=== PATIENT | female | born 1990 | race African-American/Black ===

== ENCOUNTER 2016-08-16 23:52 | Emergency (ER) | payer MEDICAID ==
[~2016-08-16] VITALS: Ht 170.2 cm; Wt 112.9 kg
[~2016-08-16 23:52] MED LIST: BACTROBAN 2% OI15 GM TOPIC; CYCLOBENZAPRINE10 MG ORAL; DOXYCYCLINE MO100 M2 PO; MACROBID100 MG ORAL; NKM; NORCO 5-325 TA1 EACH ORAL; PREDNISONE20 MG ORAL; PREDNISONE50 MG PO; RANITIDINE HCL150 MG ORAL; RANITIDINE HCL150 MG PO; ROBAXIN500 MG PO; TAMIFLU75 MG ORAL; TRAMADOL HCL50 MG ORAL; TYLENOL325 MG ORAL
[2016-08-17 00:49] LABS: APPEARANCE,URINE CLEAR; KETONES,URINE NEGATIVE (NEGATIVE); NITRITE,URINE NEGATIVE (NEGATIVE); PH,URINE 6.5 (4.5-8.0); PROTEIN,URINE NEGATIVE (NEGATIVE); UROBILINOGEN,URINE NORMAL MG/DL (0.0-1.0)
--- NOTE | 2016-08-17 00:56 | Emergency Room Report ---
History of Present Illness General Chief Complaint: Female Urogenital Problems Source: Patient Present Illness HPI Patient present with complaints of epigastric cramping Patient was vomiting and she felt that there was evidence of blood, she reports red material and wasn't sure if there was blood Also complains of diarrhea Onset of symptoms as approximately 30 minutes prior to arrival Denies any chest pressures of breath Patient has ultrasound from outside clinic showing approximately 11 week intrauterine Denies any vaginal bleeding or spotting Patient is a Allergies: Coded Allergies: ASPIRIN (Verified Allergy, Severe, Anaphylaxis, 08/17/16) DIPHENHYDRAMINE HCL (Verified Allergy, Severe, Anaphylaxis, 08/17/16) IBUPROFEN (Verified Allergy, Severe, Anaphylaxis, 08/17/16) ACETAMINOPHEN (Unverified Allergy, Unknown, 08/17/16) PAMABROM (Unverified Allergy, Unknown, 10/27/13) PYRILAMINE (Unverified Allergy, Unknown, 10/27/13) Patient History Past Medical History: see triage record Pertinent Family History: none Last Menstrual Period: june 02 Now: Yes - 11 weeks : 3 Para: 0 Reviewed Nursing Documentation: PMH: Agreed, PSxH: Agreed Nursing Documentation-PMH Past Medical History: No Stated History Hx Cardiac Problems: No Hx Cancer: No Hx Gastrointestinal Problems: No Hx Neurological Problems: No Review of Systems All Other Systems: negative except mentioned in HPI Physical Exam Vital Signs Date Time Temp Pulse Resp B/P Pulse Ox O2 Delivery O2 Flow Rate FiO2 08/17/16 00:05 98.4 75 16 144/83 97 Room Air Sp02 EP Interpretation: reviewed, normal General Appearance: well appearing, no apparent distress Head: normocephalic, atraumatic Eyes: bilateral eye EOMI, bilateral eye PERRL ENT: hearing grossly normal, normal pharynx, TMs + canals normal, uvula midline Neck: full range of motion, supple, no meningismus, no bony tend Respiratory: lungs clear, normal breath sounds, no rhonchi, no respiratory distress, no retraction, no accessory muscle use Cardiovascular #1: normal peripheral pulses, regular rate, rhythm, no edema, no gallop, no JVD, no murmur Gastrointestinal: normal bowel sounds, non tender, soft, no mass, no organomegaly, non-distended, no guarding, no hernia, no pulsatile mass, no rebound Genitourinary: no CVA tenderness Musculoskeletal: normal inspection Neurologic: oriented x3, responsive, flexographic press plate setter III-XII nml as tested, motor strength/ tone normal, sensory intact Psychiatric: mood/affect normal Skin: normal color, no rash, warm/dry, palpation normal Lymphatic: normal inspection, no adenopathy Medical Decision Making Diagnostic Impression: Primary Impression: Vomiting Additional Impression: Diarrhea ER Course With the history exam and presentation, multiple differentials considered, including but not limited to appendicitis, gastritis, cholecystitis, diverticulitis Patient has ultrasound revealing intrauterine Given the lack of any vaginal bleeding or spotting further emergency ultrasound was not repeated Patient's blood work is at baseline levels patient remains comfortable to consideration for GI bleed is low and the patient is stable for close outpatient followup Labs Test 08/17/16 00:10 08/17/16 00:45 Urine Color Pale yellow Urine Appearance Clear Urine pH 6.5 (4.5-8.0) Urine Specific [place] 1.020 (1.005-1.035) Urine Protein Negative (NEGATIVE) Urine Glucose (UA) Negative (NEGATIVE) Urine Ketones Negative (NEGATIVE) Urine Occult Blood Negative (NEGATIVE) Urine Nitrite Negative (NEGATIVE) Urine Bilirubin Negative (NEGATIVE) Urine Urobilinogen Normal MG/DL (0.0-1.0) Urine Leukocyte Esterase 1+ (NEGATIVE) Urine RBC 0-2 /HPF (0 - 2) Urine WBC 0-2 /HPF (0 - 2) Urine Squamous Epithelial Cells Moderate /LPF (NONE/OCC) Urine Amorphous Sediment Moderate /LPF (NONE) Urine Bacteria Few /HPF (NONE) Urine Coarse Granular Casts 0-2 /LPF (NONE) Urine HCG, Qualitative Positive White Blood Count 6.3 K/UL (4.8-10.8) Red Blood Count 4.74 M/UL (4.20-5.40) Hemoglobin 11.7 G/DL (12.0-16.0) Hematocrit 37.8 % (37.0-47.0) Mean Corpuscular Volume 80 FL (80-99) Mean Corpuscular Hemoglobin 24.8 PG (27.0-31.0) Mean Corpuscular Hemoglobin Concent 31.1 G/DL (32.0-36.0) Red Cell Distribution Width 15.3 % (11.6-14.8) Platelet Count 323 K/UL (150-450) Mean Platelet Volume 6.5 FL (6.5-10.1) Neutrophils (%) (Auto) 65.6 % (45.0-75.0) Lymphocytes (%) (Auto) 26.2 % (20.0-45.0) Monocytes (%) (Auto) 3.1 % (1.0-10.0) Eosinophils (%) (Auto) 3.7 % (0.0-3.0) Basophils (%) (Auto) 1.4 % (0.0-2.0) Sodium Level 136 mEQ/L (135-145) Potassium Level 3.7 mEQ/L (3.4-4.9) Chloride Level 98 mEQ/L (98-107) Carbon Dioxide Level 21 mEQ/L (20-30) Anion Gap 17 (5-15) Blood Urea Nitrogen 5 mg/dL (7-23) Creatinine 0.6 mg/dL (0.5-0.9) Estimat Glomerular Filtration Rate > 60 mL/min (>60) Glucose Level 91 mg/dL (74-106) Calcium Level 9.6 mg/dL (8.6-10.2) Total Bilirubin < 0.2 mg/dL (0.0-1.2) Aspartate Amino Transf (AST/SGOT) 14 U/L (5-40) Alanine Aminotransferase (ALT/SGPT) 13 U/L (3-33) Alkaline Phosphatase 80 U/L (35-104) Total Protein 7.3 g/dL (6.6-8.7) Albumin 3.7 g/dL (3.5-5.2) Globulin 3.6 g/dL Albumin/Globulin Ratio 1.0 (1.0-2.7) Lipase 17 U/L (< 60) Chest X-Ray Diagnostic Results Chest X-Ray Ordered: No Last Vital Signs Date Time Temp Pulse Resp B/P Pulse Ox O2 Delivery O2 Flow Rate FiO2 08/17/16 00:05 98.4 75 16 144/83 97 Room Air Status: improved Disposition: HOME, SELF-CARE Condition: Improved Scripts Metoclopramide Hcl* (REGLAN*) 5 Mg Tablet 5 MG ORAL EVERY 12 HOURS, #10 TAB Prov: LENA HAN D.O. 08/17/16 Additional Instructions: Patient is provided with the discharge instructions notified to follow up with primary doctor in the next 2-3 days otherwise return to the er with any worsening symptoms. Please note that this report is being documented using DRAGON technology. This can lead to erroneous entry secondary to incorrect interpretation by the dictating instrument. LENA HAN D.O. Aug 17, 2016 00:56
[2016-08-17 01:00] LABS: LEUKOCYTE ESTERASE ,URINE 1+ (NEGATIVE)
[2016-08-17 01:01] LABS: AMORPHOUS SEDIMENT,UR MODERATE /LPF; BACTERIA,URINE FEW /HPF; COARSE GRANULAR CASTS,URINE 0-2 /LPF; RBC,URINE 0-2 /HPF (0 - 2); SQUAMOUS EPITHELIAL CELL,UR MODERATE /LPF (NONE/OCC); WBC,URINE 0-2 /HPF (0 - 2)
[2016-08-17 01:09] LABS: BASOPHILS % (AUTO) 1.4 % (0.0-2.0); EOSINOPHILS % (AUTO) 3.7 % (0.0-3.0); LYMPHOCYTES % (AUTO) 26.2 % (20.0-45.0); MEAN CORPUSCULAR HEMOGLOBIN 24.8 PG (27.0-31.0); MEAN CORPUSCULAR HGB CONC 31.1 G/DL (32.0-36.0); MEAN CORPUSCULAR VOLUME 80 FL (80-99); MEAN PLATELET VOLUME 6.5 FL (6.5-10.1); MONOCYTES % (AUTO) 3.1 % (1.0-10.0); NEUTROPHILS % (AUTO) 65.6 % (45.0-75.0); PLATELET COUNT 323 K/UL (150-450); RED BLOOD COUNT 4.74 M/UL (4.20-5.40); RED CELL DISTRIBUTION WIDTH 15.3 % (11.6-14.8); WHITE BLOOD COUNT 6.3 K/UL (4.8-10.8)
[2016-08-17 01:30] LABS: ALANINE AMINOTRANSFERASE 13 U/L (3-33); ANION GAP 17 (5-15); ASPARTATE AMINO TRANSFERASE 14 U/L (5-40); CALCIUM 9.6 mg/dL (8.6-10.2); CARBON DIOXIDE 21 mEQ/L (20-30); CHLORIDE 98 mEQ/L (98-107); CREATININE 0.6 mg/dL (0.5-0.9); GLOMERULAR FILTRATION RATE > 60 mL/min (>60); HEMOLYSIS 0; LIPASE 17 U/L (< 60); POTASSIUM 3.7 mEQ/L (3.4-4.9); SODIUM 136 mEQ/L (135-145); TOTAL PROTEIN 7.3 g/dL (6.6-8.7)
[2016-08-17 02:35] VITALS: BP 135/81
[2016-08-17] MEDS ORDERED: REGLAN5 MG ORAL (02:37)
[2016-08-17 02:45] VITALS: BP 135/81
== END 2016-08-17 02:45 | disposition home or self-care (01) ==
LOC: EMR 08-17 01:20
DX: R11.10 Vomiting, unspecified (principal); R19.7 Diarrhea, unspecified; O26.91 Pregnancy related conditions, unspecified, first trimester; Z3A.11 11 weeks gestation of pregnancy; Z88.6 Allergy status to analgesic agent; Z88.8 Allergy status to other drugs, medicaments and biological substances
CPT/HCPCS: 36415; 80053; 81003; 81025; 83690; 85025; 99283

== ENCOUNTER 2017-02-26 13:50 | Emergency (ER) | payer MEDICAID ==
[~2017-02-26] VITALS: Ht 170.2 cm; Wt 108.9 kg
[~2017-02-26 13:50] MED LIST changes: +REGLAN5 MG ORAL
[2017-02-26 15:05] LABS: BASOPHILS % (AUTO) 1.4 % (0.0-2.0); LYMPHOCYTES % (AUTO) 22.4 % (20.0-45.0); MEAN CORPUSCULAR HEMOGLOBIN 23.1 PG (27.0-31.0); MEAN CORPUSCULAR HGB CONC 30.4 G/DL (32.0-36.0); MEAN CORPUSCULAR VOLUME 76 FL (80-99); MEAN PLATELET VOLUME 6.1 FL (6.5-10.1); MONOCYTES % (AUTO) 5.1 % (1.0-10.0); NEUTROPHILS % (AUTO) 64.1 % (45.0-75.0); PLATELET COUNT 322 K/UL (150-450); RED BLOOD COUNT 3.55 M/UL (4.20-5.40); RED CELL DISTRIBUTION WIDTH 13.7 % (11.6-14.8); WHITE BLOOD COUNT 5.7 K/UL (4.8-10.8)
[2017-02-26 15:27] LABS: ANION GAP 10 mmol/L (5-15); CALCIUM 7.8 MG/DL (8.5-10.1); CARBON DIOXIDE 23 MMOL/L (21-32); CHLORIDE 108 MMOL/L (98-107); CREATININE 0.7 MG/DL (0.55-1.30); GLOMERULAR FILTRATION RATE > 60 mL/min (>60); POTASSIUM 3.7 MMOL/L (3.5-5.1); SODIUM 141 MMOL/L (136-145)
[2017-02-26 15:31] LABS: INR 0.9 (0.9-1.1); PROTHROMBIN TIME 9.8 SEC (9.30-11.50)
[2017-02-26 15:34] LABS: ALANINE AMINOTRANSFERASE 16 U/L (12-78); ALBUMIN/GLOBULIN RATIO 0.6 (1.0-2.7); ASPARTATE AMINO TRANSFERASE 26 U/L (15-37); TOTAL PROTEIN 6.2 G/DL (6.4-8.2)
[2017-02-26 16:42] LABS: APPEARANCE,URINE VERY CLOUDY; KETONES,URINE NEGATIVE (NEGATIVE); LEUKOCYTE ESTERASE ,URINE 3+ (NEGATIVE); NITRITE,URINE NEGATIVE (NEGATIVE); PH,URINE 6 (4.5-8.0); PROTEIN,URINE 3+ (NEGATIVE); UROBILINOGEN,URINE NORMAL MG/DL (0.0-1.0)
[2017-02-26 16:52] LABS: BACTERIA,URINE FEW /HPF; RBC,URINE TNTC /HPF (0 - 2); SQUAMOUS EPITHELIAL CELL,UR MANY /LPF (NONE/OCC); TRANSITIONAL EPI CELLS,URINE MODERATE /LPF; WBC,URINE 40-60 /HPF (0 - 2)
[2017-02-26] MEDS ORDERED: CEPHALEXIN500 MG ORAL (17:21)
[2017-02-26 17:35] VITALS: BP 156/94
--- NOTE | 2017-02-26 22:52 | Emergency Room Report ---
History of Present Illness General Chief Complaint: Pain Source: Patient Present Illness HPI The patient is a 26-year-old female presenting for left leg swelling. She gave 2 days prior via vaginal delivery. She had epidural done as well. She noticed left lower leg pain approximately one hour prior to arrival. Pain is a 7/10 dull ache and does not radiate. She denies any other symptoms including fever, chills, shortness of breath, cough, rash, numbness or tingling Allergies: Coded Allergies: ASPIRIN (Verified Allergy, Severe, Anaphylaxis, 08/17/16) DIPHENHYDRAMINE HCL (Verified Allergy, Severe, Anaphylaxis, 08/17/16) IBUPROFEN (Verified Allergy, Severe, Anaphylaxis, 08/17/16) ACETAMINOPHEN (Unverified Allergy, Unknown, 08/17/16) PAMABROM (Unverified Allergy, Unknown, 10/27/13) PYRILAMINE (Unverified Allergy, Unknown, 10/27/13) Patient History Past Medical History: see triage record Pertinent Family History: none Now: No Reviewed Nursing Documentation: PMH: Agreed, PSxH: Agreed Nursing Documentation-PMH Past Medical History: No Stated History Hx Cardiac Problems: No Hx Cancer: No Hx Gastrointestinal Problems: No Hx Neurological Problems: No Review of Systems All Other Systems: negative except mentioned in HPI Physical Exam Vital Signs Date Time Temp Pulse Resp B/P (MAP) Pulse Ox O2 Delivery O2 Flow Rate FiO2 02/26/17 14:02 Room Air 02/26/17 17:35 71 16 156/94 98 02/26/17 17:35 98.1 Sp02 EP Interpretation: reviewed, normal General Appearance: no apparent distress, alert, GCS 15, non-toxic Head: normocephalic, atraumatic Eyes: bilateral eye normal inspection, bilateral eye PERRL ENT: hearing grossly normal, normal pharynx, no angioedema, normal voice Respiratory: chest non-tender, lungs clear, normal breath sounds, speaking full sentences Cardiovascular #1: regular rate, rhythm, no edema Musculoskeletal: back normal, gait/station normal, normal range of motion, no calf tenderness, swelling - L lower leg Neurologic: alert, oriented x3, responsive, motor strength/tone normal, sensory intact, speech normal Psychiatric: judgement/insight normal, memory normal, mood/affect normal, no suicidal/homicidal ideation Skin: normal color, no rash, warm/dry, well hydrated Medical Decision Making PA Attestation Dr. Moses is my supervising physician. Patient management was discussed with my supervising physician Diagnostic Impression: Primary Impression: Leg swelling Additional Impression: Urinary tract infection ER Course The patient is a 26-year-old female presenting for left leg swelling. DDx considered but not limited to: DVT, lymphedema, cellulitis, muscle strain, among others, eclampsia PE: HTN. Otherwise unremarkable RRR Lungs CTA bilat L lower leg has 1+ non pitting edema. + calf tenderness Labs: CBC: Hemoglobin of 8. No leukocytosis. Otherwise unremarkable CMP unremarkable Urinalysis shows blood with signs of infection. Few bacteria with white blood cells Venous duplex neg for DVT. The patient will be treated for possible UTI with abx and will be FL'ed home she needs to FU with [facility] for further evaluation. ER precautions given Laboratory Tests Test 02/26/17 14:40 02/26/17 16:32 White Blood Count 5.7 K/UL (4.8-10.8) Red Blood Count 3.55 M/UL (4.20-5.40) L Hemoglobin 8.2 G/DL (12.0-16.0) L Hematocrit 27.0 % (37.0-47.0) L Mean Corpuscular Volume 76 FL (80-99) L Mean Corpuscular Hemoglobin 23.1 PG (27.0-31.0) L Mean Corpuscular Hemoglobin Concent 30.4 G/DL (32.0-36.0) L Red Cell Distribution Width 13.7 % (11.6-14.8) Platelet Count 322 K/UL (150-450) Mean Platelet Volume 6.1 FL (6.5-10.1) L Neutrophils (%) (Auto) 64.1 % (45.0-75.0) Lymphocytes (%) (Auto) 22.4 % (20.0-45.0) Monocytes (%) (Auto) 5.1 % (1.0-10.0) Eosinophils (%) (Auto) 7.0 % (0.0-3.0) H Basophils (%) (Auto) 1.4 % (0.0-2.0) Prothrombin Time 9.8 SEC (9.30-11.50) Prothrombin Time INR 0.9 (0.9-1.1) PTT 27 SEC (23-33) Sodium Level 141 MMOL/L (136-145) Potassium Level 3.7 MMOL/L (3.5-5.1) Chloride Level 108 MMOL/L (98-107) H Carbon Dioxide Level 23 MMOL/L (21-32) Anion Gap 10 mmol/L (5-15) Blood Urea Nitrogen 3 mg/dL (7-18) L Creatinine 0.7 MG/DL (0.55-1.30) Estimate Glomerular Filtration Rate > 60 mL/min (>60) Glucose Level 74 MG/DL (74-106) Calcium Level 7.8 MG/DL (8.5-10.1) L Total Bilirubin 0.3 MG/DL (0.2-1.0) Aspartate Amino Transferase (AST) 26 U/L (15-37) Alanine Aminotransferase (ALT) 16 U/L (12-78) Alkaline Phosphatase 105 U/L (46-116) Total Protein 6.2 G/DL (6.4-8.2) L Albumin 2.3 G/DL (3.4-5.0) L Globulin 3.9 g/dL Albumin/Globulin Ratio 0.6 (1.0-2.7) L Urine Color Yellow Urine Appearance Very cloudy Urine pH 6 (4.5-8.0) Urine Specific [place] 1.020 (1.005-1.035) Urine Protein 3+ (NEGATIVE) H Urine Glucose (UA) Negative (NEGATIVE) Urine Ketones Negative (NEGATIVE) Urine Occult Blood 5+ (NEGATIVE) H Urine Nitrite Negative (NEGATIVE) Urine Bilirubin Negative (NEGATIVE) Urine Urobilinogen Normal MG/DL (0.0-1.0) Urine Leukocyte Esterase 3+ (NEGATIVE) H Urine RBC Tntc /HPF (0 - 2) H Urine WBC 40-60 /HPF (0 - 2) H Urine Squamous Epithelial Cells Many /LPF (NONE/OCC) H Urine Transitional Epithelial Cells Moderate /LPF (NONE) H Urine Bacteria Few /HPF (NONE) Lab Results Impression CBC: Hemoglobin of 8. No leukocytosis. Otherwise unremarkable CMP unremarkable Urinalysis shows blood with signs of infection. Few bacteria with white blood cells CT/MRI/US Diagnostic Results CT/MRI/US Diagnostic Results : Imaging Test Ordered: venous duplex Impression no DVT Last Vital Signs Date Time Temp Pulse Resp B/P (MAP) Pulse Ox O2 Delivery O2 Flow Rate FiO2 02/26/17 17:35 98.1 71 16 156/94 98 Room Air Status: improved Disposition: HOME, SELF-CARE Condition: Improved Scripts Cephalexin* (KEFLEX*) 500 Mg Capsule 500 MG ORAL EVERY 12 HOURS, #14 CAP 0 Refills Prov: MARIBETH BEGUM 02/26/17 Referrals: NON PHYSICIAN (PCP) Patient Instructions: Peripheral Edema, Hematuria, Adult Additional Instructions: I discussed my findings with the patient. All questions and concerns have been answered. Treatment and medication compliance have been addressed. Return to ED if symptoms worsen, new symptoms arise, or if needed for any reason. Patient verbalized understanding of discharge instructions. Please followup with your [facility] as soon as possible MARIBETH BEGUM Feb 26, 2017 22:52
--- NOTE | 2017-03-03 10:48 | Diagnostic Imaging Report ---
APPROVED REPORT CPT Code: 88108 Present Symptoms Lower Extremity Pain: Left LEFT LEG: Venous imaging reveals a patent deep venous system. There is no evidence of thrombus within the femoral, popliteal or tibial segments. The greater saphenous vein is also within normal limits. Doppler indicates normal spontaneous flow within these segments.
== END 2017-02-26 17:35 | disposition home or self-care (01) ==
LOC: EMR 14:30
DX: M79.89 Other specified soft tissue disorders (principal); N39.0 Urinary tract infection, site not specified; M79.605 Pain in left leg; Z88.6 Allergy status to analgesic agent; Z88.8 Allergy status to other drugs, medicaments and biological substances
CPT/HCPCS: 36415; 80053; 81003; 85025; 85610; 85730; 87086; 93971; 99284

== ENCOUNTER 2018-09-05 11:33 | Emergency (ER) | payer MEDICAID ==
[~2018-09-05] VITALS: Ht 170.2 cm; Wt 120.7 kg
[~2018-09-05 11:33] MED LIST changes: +CEPHALEXIN500 MG ORAL; +TESSALON PERLE100 MG ORAL; +TYLENOL EXTRA500 MG ORAL
[2018-09-05 12:00] VITALS: BP 117/71
[2018-09-05 12:53] LABS: BASOPHILS % (AUTO) 1.1 % (0.0-2.0); EOSINOPHILS % (AUTO) 3.9 % (0.0-3.0); HEMATOCRIT 38.4 % (37.0-47.0); HEMOGLOBIN 11.6 G/DL (12.0-16.0); LYMPHOCYTES % (AUTO) 34.7 % (20.0-45.0); MEAN CORPUSCULAR VOLUME 77 FL (80-99); MONOCYTES % (AUTO) 3.9 % (1.0-10.0); NEUTROPHILS % (AUTO) 56.4 % (45.0-75.0); PLATELET COUNT 373 K/UL (150-450); RED BLOOD COUNT 5.01 M/UL (4.20-5.40); RED CELL DISTRIBUTION WIDTH 15.2 % (11.6-14.8)
--- NOTE | 2018-09-05 12:57 | Diagnostic Imaging Report ---
Indication: Chest pain Comparison: April 14, 2017 A single view chest radiograph was obtained. Findings: Cardiomediastinal appearance is within normal limits for age. The lungs are clear. Pulmonary vascularity is appropriate. The diaphragmatic contour is smooth and costophrenic angles are sharp. No pleural effusions are identified. The bones are unremarkable. Impression: No acute findings
[2018-09-05 12:59] LABS: BLOOD UREA NITROGEN 12 mg/dL (7-18); CREATININE 0.8 MG/DL (0.55-1.30)
[2018-09-05 13:02] LABS: APPEARANCE,URINE CLOUDY; BILIRUBIN, URINE NEGATIVE (NEGATIVE); COLOR,URINE PALE YELLOW; GLUCOSE, URINE (UA) NEGATIVE (NEGATIVE); KETONES,URINE NEGATIVE (NEGATIVE); LEUKOCYTE ESTERASE ,URINE 3+ (NEGATIVE); NITRITE,URINE NEGATIVE (NEGATIVE); PH,URINE 6 (4.5-8.0); PROTEIN,URINE NEGATIVE (NEGATIVE); UROBILINOGEN,URINE NORMAL MG/DL (0.0-1.0)
--- NOTE | 2018-09-05 13:04 | Emergency Room Report ---
History of Present Illness General Chief Complaint: Syncope Source: Patient Present Illness HPI Patient states that for the past 3 days she has had persistent chest pain. She states that these have also been associated with what she believes is blacking out. She states that she will wake up on the floor and is unsure how much time has lapsed. She states that has happened several times in the past few days. She also states she has had tingling and numbness in different parts of her body. She denies recent illness. She denies fever or chills. She denies nausea or vomiting. She denies cough or congestion. She denies sore throat. She denies headache or neck pain. She denies blurry vision. She denies abdominal pain. She denies any injuries from the "black out" episodes. She states that about 1 month ago she did have her Norplant removed. She states this was secondary to ongoing heavy vaginal bleeding. She is being followed closely by her primary care physician. She was supposed to have an appointment today to get an annual pelvic exam and possibly go on control pills. She denies that she is currently having any vaginal bleeding. She denies alcohol or drug use. Has been noting lesions on her arms and legs intermittently that itch. She is unsure whether she has had any insect bites. She states the bumps last for about a week and then resolved. She has no other complaints. Allergies: Coded Allergies: ASPIRIN (Verified Allergy, Severe, Anaphylaxis, 08/17/16) DIPHENHYDRAMINE HCL (Verified Allergy, Severe, Anaphylaxis, 08/17/16) IBUPROFEN (Verified Allergy, Severe, Anaphylaxis, 08/17/16) ACETAMINOPHEN (Unverified Allergy, Unknown, 08/17/16) PAMABROM (Unverified Allergy, Unknown, 10/27/13) PYRILAMINE (Unverified Allergy, Unknown, 10/27/13) Patient History Past Medical History: none, see triage record Social History: Denies: smoking, alcohol use, drug use Last Menstrual Period: 08/08/18 Reviewed Nursing Documentation: PMH: Agreed; PSxH: Agreed Nursing Documentation-PM Past Medical History: No Stated History Hx Cardiac Problems: No Hx Cancer: No Hx Gastrointestinal Problems: No Hx Neurological Problems: No Review of Systems All Other Systems: negative except mentioned in HPI Physical Exam Vital Signs Date Time Temp Pulse Resp B/P (MAP) Pulse Ox O2 Delivery O2 Flow Rate FiO2 09/05/18 11:40 98.6 76 18 117/71 (86) 98 Room Air Sp02 EP Interpretation: reviewed, normal General Appearance: no apparent distress, alert, GCS 15, non-toxic Head: normocephalic, atraumatic Eyes: bilateral eye normal inspection, bilateral eye PERRL ENT: hearing grossly normal, normal pharynx, no angioedema, normal voice Neck: full range of motion, supple/symm/no masses Respiratory: chest non-tender, lungs clear, normal breath sounds, no respiratory distress, no retraction, no accessory muscle use, speaking full sentences Cardiovascular #1: regular rate, rhythm, no edema Gastrointestinal: normal bowel sounds, non tender, soft, non-distended, no guarding, no rebound Rectal: deferred Musculoskeletal: back normal, gait/station normal, normal range of motion, non- tender Neurologic: alert, oriented x3, responsive, motor strength/tone normal, sensory intact, speech normal Psychiatric: judgement/insight normal, memory normal, mood/affect normal, no suicidal/homicidal ideation Medical Decision Making Diagnostic Impression: Primary Impression: Syncope Additional Impressions: UTI (urinary tract infection) Chest pain Insect bites and stings ER Course I suspect the syncope that the patient is presenting with is a nonemergent in etiology. Regarding the history, the patient has no history of structural heart disease or coronary artery disease, no family history of sudden , has no shortness of breath, and the syncope is not exertional. On physical exam , the patient is not hypotensive, has no findings of CHF, and no significant cardiac murmur suggestive of valvular heart disease or cardiac outflow obstruction. The patient reports no history of seizure or head trauma. EKG showed no evidence of concerning findings of QT prolongation, Brugada syndrome or significant ST changes suggestive of acute ischemia, dysrhythmias or significant conduction abnormalities. On laboratory evaluation, blood sugar was normal and the patient is not anemic. The patient was counseled that, though unlikely, the possibility of an emergent cause of syncope may be present and that the patient should return immediately if symptoms persist or worsen. This patient also has nonspecific chest pain. Given the length of symptoms, this workup is very reassuring with negative cardiac enzymes, normal EKG, and normal chest x-ray. The patient is low risk and his symptoms are atypical for acute coronary syndrome. I have very low suspicion for PE, aortic dissection or pneumothorax based on history/physical, laboratory and radiologic workup. The patient also has scattered lesions consistent with most likely mosquito bites versus some other insect. These are not an emergency. The patient was instructed to follow-up closely with her primary care physician. The patient was given close return precautions and followup instructions. Laboratory Tests Test 09/05/18 11:55 09/05/18 12:20 Urine Color Pale yellow Urine Appearance Cloudy Urine pH 6 (4.5-8.0) Urine Specific [place] 1.020 (1.005-1.035) Urine Protein Negative (NEGATIVE) Urine Glucose (UA) Negative (NEGATIVE) Urine Ketones Negative (NEGATIVE) Urine Blood Negative (NEGATIVE) Urine Nitrite Negative (NEGATIVE) Urine Bilirubin Negative (NEGATIVE) Urine Urobilinogen Normal MG/DL (0.0-1.0) Urine Leukocyte Esterase 3+ (NEGATIVE) H Urine RBC 5-10 /HPF (0 - 2) H Urine WBC 5-10 /HPF (0 - 2) H Urine Squamous Epithelial Cells Many /LPF (NONE/OCC) H Urine Bacteria Few /HPF (NONE) Urine HCG, Qualitative Negative (NEGATIVE) Urine Opiates Screen Negative (NEGATIVE) Urine Barbiturates Screen Negative (NEGATIVE) Phencyclidine (PCP) Screen Negative (NEGATIVE) Urine Amphetamines Screen Negative (NEGATIVE) Urine Benzodiazepines Screen Negative (NEGATIVE) Urine Cocaine Screen Negative (NEGATIVE) Urine Marijuana (THC) Screen Negative (NEGATIVE) White Blood Count 5.0 K/UL (4.8-10.8) Red Blood Count 5.01 M/UL (4.20-5.40) Hemoglobin 11.6 G/DL (12.0-16.0) L Hematocrit 38.4 % (37.0-47.0) Mean Corpuscular Volume 77 FL (80-99) L Mean Corpuscular Hemoglobin 23.2 PG (27.0-31.0) L Mean Corpuscular Hemoglobin Concent 30.3 G/DL (32.0-36.0) L Red Cell Distribution Width 15.2 % (11.6-14.8) H Platelet Count 373 K/UL (150-450) Mean Platelet Volume 5.7 FL (6.5-10.1) L Neutrophils (%) (Auto) 56.4 % (45.0-75.0) Lymphocytes (%) (Auto) 34.7 % (20.0-45.0) Monocytes (%) (Auto) 3.9 % (1.0-10.0) Eosinophils (%) (Auto) 3.9 % (0.0-3.0) H Basophils (%) (Auto) 1.1 % (0.0-2.0) Sodium Level 139 MMOL/L (136-145) Potassium Level 3.8 MMOL/L (3.5-5.1) Chloride Level 104 MMOL/L (98-107) Carbon Dioxide Level 26 MMOL/L (21-32) Anion Gap 9 mmol/L (5-15) Blood Urea Nitrogen 12 mg/dL (7-18) Creatinine 0.8 MG/DL (0.55-1.30) Estimate Glomerular Filtration Rate > 60 mL/min (>60) Glucose Level 86 MG/DL (74-106) Calcium Level 9.1 MG/DL (8.5-10.1) Total Bilirubin 0.3 MG/DL (0.2-1.0) Aspartate Amino Transferase (AST) 17 U/L (15-37) Alanine Aminotransferase (ALT) 14 U/L (12-78) Alkaline Phosphatase 29 U/L (46-116) L Total Creatine Kinase 113 U/L (26-308) Creatine Kinase MB 0.6 NG/ML (0.0-3.6) Creatine Kinase MB Relative Index 0.5 Troponin I 0.000 ng/mL (0.000-0.056) Total Protein 7.1 G/DL (6.4-8.2) Albumin 3.4 G/DL (3.4-5.0) Globulin 3.7 g/dL Albumin/Globulin Ratio 0.9 (1.0-2.7) L EKG Diagnostic Results Rate: normal Rhythm: NSR ST Segments: no acute changes Other Impression RBBB Rhythm Strip Diag. Results EP Interpretation: yes Rate: 60's Rhythm: NSR, no PVC's, no ectopy Chest X-Ray Diagnostic Results Chest X-Ray Diagnostic Results : Chest X-Ray Ordered: Yes # of Views/Limited/Complete: 1 View Indication: Chest Pain EP Interpretation: Yes Interpretation: no consolidation, no effusion, no pneumothorax, no acute cardiopulmonary disease Impression: No acute disease Electronically Signed by: Maria A Rousseau DO Last Vital Signs Date Time Temp Pulse Resp B/P (MAP) Pulse Ox O2 Delivery O2 Flow Rate FiO2 09/05/18 12:00 98.6 118 18 117/71 98 Room Air Status: improved Disposition: HOME, SELF-CARE Condition: Improved Referrals: NON PHYSICIAN (PCP) Patient Instructions: Syncope Maria A Rousseau DO Sep 05, 2018 13:04
[2018-09-05 13:14] LABS: ALANINE AMINOTRANSFERASE 14 U/L (12-78); ALBUMIN 3.4 G/DL (3.4-5.0); ALBUMIN/GLOBULIN RATIO 0.9 (1.0-2.7); ALKALINE PHOSPHATASE 29 U/L (46-116); ASPARTATE AMINO TRANSFERASE 17 U/L (15-37); BILIRUBIN,TOTAL 0.3 MG/DL (0.2-1.0); CKMB 0.6 NG/ML (0.0-3.6); CREATINE KINASE 113 U/L (26-308)
[2018-09-05 13:15] LABS: ANION GAP 9 mmol/L (5-15); CALCIUM 9.1 MG/DL (8.5-10.1); CARBON DIOXIDE 26 MMOL/L (21-32); CHLORIDE 104 MMOL/L (98-107); POTASSIUM 3.8 MMOL/L (3.5-5.1); SODIUM 139 MMOL/L (136-145)
[2018-09-05] MEDS ORDERED: NITROFURANTOIN100 M2 ORAL (13:50)
[2018-09-05] MEDS ORDERED: ANTI-ITCH28 G1 TP (13:50)
[2018-09-05 13:59] VITALS: BP 112/79
[2018-09-05 14:00] VITALS: BP 112/79
--- NOTE | 2018-09-06 15:44 | Cardiology Report ---
APPROVED REPORT EKG Measurement Heart [id number] Normal sinus rhythm with sinus arrhythmia Incomplete right bundle branch block Borderline ECG
== END 2018-09-05 14:02 | disposition home or self-care (01) ==
LOC: EMR 12:10
DX: R07.9 Chest pain, unspecified (principal); R55 Syncope and collapse; N39.0 Urinary tract infection, site not specified; T14.8XXA Other injury of unspecified body region, initial encounter; W57.XXXA Bitten or stung by nonvenomous insect and other nonvenomous arthropods, initial encounter; Y92.9 Unspecified place or not applicable; Z88.6 Allergy status to analgesic agent
CPT/HCPCS: 36415; 71045; 80053; 80307; 81003; 81025; 82550; 82553; 84484; 85025; 93005; 96360; 99284

== ENCOUNTER → 2019-01-18 | Emergency (ER) | payer MEDICAID ==
[~2019-01-18] VITALS: Ht 170.2 cm; Wt 125.2 kg
[~2019-01-18] MED LIST changes: +ANTI-ITCH28 G1 TP; +D5NS 1,000 ML IV ONE; +DiphenhydrAMINE 50mg/ml Inj IVP ONE; +Metoclopramide 10mg/2ml Inj IVP ONE; +NITROFURANTOIN100 M2 ORAL; +PHENERGAN25 M1 ORAL; +PRENATAL FORMU1 EAC4 PO; +PROMETHEGAN25 MG RC
[2019-01-18 11:11] VITALS: BP 122/70
--- NOTE | 2019-01-18 11:11 | NUR ---
ED Nurse Note: PT WALKE DIN DUE TO ABD. PAIN X 4 DAYS. PT ALSO C/O N/V/D AND FEELING OF LIGHTHEADEDNESS. STATES THAT SHE PASSED OUT YESTERDAY. AAO X4, AMBULATES WITH STEADY GAIT WITH NON LABORED BREATHING.
--- NOTE | 2019-01-18 12:00 | NUR ---
ED Nurse Note: PT STATES SHE IS ALLERGIC TO BENADRYL AND DR LAM NOTIFIED. RN HELD OFF MEDICATION.
[2019-01-18 12:12] LABS: APPEARANCE,URINE CLEAR; BILIRUBIN, URINE NEGATIVE (NEGATIVE); GLUCOSE, URINE (UA) NEGATIVE (NEGATIVE); KETONES,URINE 1+ (NEGATIVE); LEUKOCYTE ESTERASE ,URINE 1+ (NEGATIVE); NITRITE,URINE NEGATIVE (NEGATIVE); PH,URINE 5 (4.5-8.0); PROTEIN,URINE NEGATIVE (NEGATIVE); UROBILINOGEN,URINE NORMAL MG/DL (0.0-1.0)
[2019-01-18 12:14] LABS: COLOR,URINE YELLOW
--- NOTE | 2019-01-18 12:15 | NUR ---
ED Nurse Note: PT TAKEN TO US AND STABLE.
[2019-01-18 12:22] LABS: INR 0.9 (0.9-1.1)
[2019-01-18 12:23] LABS: ANION GAP 3 mmol/L (5-15); BLOOD UREA NITROGEN 7 mg/dL (7-18); CALCIUM 8.7 MG/DL (8.5-10.1); CARBON DIOXIDE 30 MMOL/L (21-32); CHLORIDE 102 MMOL/L (98-107); CREATININE 0.8 MG/DL (0.55-1.30); POTASSIUM 3.7 MMOL/L (3.5-5.1); SODIUM 135 MMOL/L (136-145)
[2019-01-18 12:41] LABS: ALANINE AMINOTRANSFERASE 19 U/L (12-78); ALBUMIN/GLOBULIN RATIO 0.7 (1.0-2.7); ALKALINE PHOSPHATASE 83 U/L (46-116); ASPARTATE AMINO TRANSFERASE 17 U/L (15-37); BILIRUBIN,TOTAL 0.2 MG/DL (0.2-1.0)
--- NOTE | 2019-01-18 13:13 | NUR ---
ED Nurse Note: PT. CAME BACK FROM US. STABLE VS
--- NOTE | 2019-01-18 13:20 | Emergency Room Report ---
History of Present Illness General Chief Complaint: Abdominal Pain Source: Patient Present Illness HPI The patient is referred from [facility]. She was sent here to rule out ectopic . Last menstruation was January 02. She had some spotting and lower abdominal pain. She had a prior beta hCG that was 429. An ultrasound did not identify intrauterine . She still has lower abdominal pain. She rates the pain 10/10 at this time. Constant aching more on the left lower quadrant. She denies dysuria. She is having trouble keeping anything down. She feels dehydrated. There is no diarrhea. She does not know her blood type. No fevers, chills, sore throat, chest pain, palpitations, shortness of breath, joint pain, rashes, depression, anxiety, visual changes, dizziness, headache. Allergies: Coded Allergies: ASPIRIN (Verified Allergy, Severe, Anaphylaxis, 08/17/16) DIPHENHYDRAMINE HCL (Verified Allergy, Severe, Anaphylaxis, 08/17/16) IBUPROFEN (Verified Allergy, Severe, Anaphylaxis, 08/17/16) ACETAMINOPHEN (Unverified Allergy, Unknown, 08/17/16) PAMABROM (Unverified Allergy, Unknown, 10/27/13) PYRILAMINE (Unverified Allergy, Unknown, 10/27/13) Patient History Past Medical History: see triage record Social History: Denies: smoking Social History Narrative Has an at home Last Menstrual Period: Jan 02, 2019 : 3 Para: 1 Reviewed Nursing Documentation: PMH: Agreed; PSxH: Agreed Nursing Documentation-PMH Past Medical History: No Stated History Hx Cardiac Problems: No Hx Cancer: No Hx Gastrointestinal Problems: No Hx Neurological Problems: No Review of Systems All Other Systems: negative except mentioned in HPI Physical Exam Vital Signs Date Time Temp Pulse Resp B/P (MAP) Pulse Ox O2 Delivery O2 Flow Rate FiO2 01/18/19 11:01 98.4 97 17 131/86 (101) 98 Room Air Sp02 EP Interpretation: reviewed, normal General Appearance: well appearing, no apparent distress, GCS 15 Head: normocephalic Eyes: bilateral eye normal inspection, bilateral eye PERRL, bilateral eye EOMI ENT: moist mucus membranes Neck: supple Respiratory: lungs clear, normal breath sounds Cardiovascular #1: regular rate, rhythm Cardiovascular #2: 2+ radial (R) Gastrointestinal: normal inspection, normal bowel sounds, soft, no mass, non- distended, no guarding, no rebound, tenderness - Reported Genitourinary: no CVA tenderness, deferred - For ultrasound Musculoskeletal: back normal, gait/station normal, normal range of motion Neurologic: alert, oriented x3, grossly normal Psychiatric: mood/affect normal Skin: no rash, warm/dry Medical Decision Making Diagnostic Impression: Primary Impression: Threatened miscarriage Additional Impression: Ovarian cyst Qualified Codes: N83.202 - Unspecified ovarian cyst, left side ER Course patient presents with lower abdominal pain with question of ectopic. Differential includes ectopic, threatened miscarriage, early , ovarian cyst, UTI amongst others. Evaluation with labs and ultrasound. The patient will be treated with IV hydration. In addition the patient will be given a dose of Reglan. Labs significant for rise in beta hCG. Blood type B+. Normal white count and minimal anemia. Urinalysis clear. Ultrasound negative for ectopic. Intrauterine gestational sac with pole. Discussed results with patient. Patient tolerating oral fluids. She tells me the pain is decreased at this time. Patient stable for outpatient observation and treatment.. Laboratory Tests Test 01/18/19 11:50 Prothrombin Time 9.8 SEC (9.30-11.50) Prothrombin Time INR 0.9 (0.9-1.1) PTT 24 SEC (23-33) Urine Color Yellow Urine Appearance Clear Urine pH 5 (4.5-8.0) Urine Specific [place] 1.025 (1.005-1.035) Urine Protein Negative (NEGATIVE) Urine Glucose (UA) Negative (NEGATIVE) Urine Ketones 1+ (NEGATIVE) H Urine Blood Negative (NEGATIVE) Urine Nitrite Negative (NEGATIVE) Urine Bilirubin Negative (NEGATIVE) Urine Urobilinogen Normal MG/DL (0.0-1.0) Urine Leukocyte Esterase 1+ (NEGATIVE) H Urine RBC 0-2 /HPF (0 - 2) Urine WBC 2-4 /HPF (0 - 2) Urine Squamous Epithelial Cells Few /LPF (NONE/OCC) Urine Bacteria Few /HPF (NONE) Sodium Level 135 MMOL/L (136-145) L Potassium Level 3.7 MMOL/L (3.5-5.1) Chloride Level 102 MMOL/L (98-107) Carbon Dioxide Level 30 MMOL/L (21-32) Anion Gap 3 mmol/L (5-15) L Blood Urea Nitrogen 7 mg/dL (7-18) Creatinine 0.8 MG/DL (0.55-1.30) Estimate Glomerular Filtration Rate > 60 mL/min (>60) Glucose Level 91 MG/DL (74-106) Calcium Level 8.7 MG/DL (8.5-10.1) Total Bilirubin 0.2 MG/DL (0.2-1.0) Aspartate Amino Transferase (AST) 17 U/L (15-37) Alanine Aminotransferase (ALT) 19 U/L (12-78) Alkaline Phosphatase 83 U/L (46-116) Total Protein 7.1 G/DL (6.4-8.2) Albumin 3.0 G/DL (3.4-5.0) L Globulin 4.1 g/dL Albumin/Globulin Ratio 0.7 (1.0-2.7) L Lipase 75 U/L (73-393) Human Chorionic Gonadotropin, Quant 7070 mIU/mL (1-6) H CT/MRI/US Diagnostic Results CT/MRI/US Diagnostic Results : Imaging Test Ordered: Pelvic ultrasound Impression IMPRESSION: Viability indeterminate 5 week 6 day intrauterine . Recommend sonographic follow-up in one week as well as correlation with serial quantitative beta-hCG. Dominant 4.8 cm left ovarian cyst. Last Vital Signs Date Time Temp Pulse Resp B/P (MAP) Pulse Ox O2 Delivery O2 Flow Rate FiO2 01/18/19 11:11 89 15 Room Air 01/18/19 11:11 98.4 122/70 100 Status: improved Disposition: HOME, SELF-CARE Condition: Improved Scripts Vits #93/Iron Fum/Fa ( FORMULA TABLET) 1 Each Tablet 1 EACH PO DAILY, #30 TAB Prov: Deni العلي MD 01/18/19 Promethazine Hcl (PROMETHEGAN) 25 Mg Supp.rect 25 MG RC Q8HR, #6 SUPP Prov: Deni العلي MD 01/18/19 Promethazine Hcl* (PHENERGAN*) 25 Mg Tablet 25 MG ORAL Q8HR PRN for Nausea & Vomiting, #15 TAB 0 Refills Prov: Deni العلي MD 01/18/19 Tramadol Hcl* (ULTRAM*) 50 Mg Tablet 50 MG ORAL Q6H PRN for For Pain, #10 TAB 0 Refills Prov: Deni العلي MD 01/18/19 Referrals: [facility],REFERR[facility] (PCP) Deni العلي MD Jan 18, 2019 13:20
[2019-01-18 13:49] LABS: BASOPHILS % (AUTO) 1.8 % (0.0-2.0); HEMATOCRIT 35.4 % (37.0-47.0); LYMPHOCYTES % (AUTO) 32.6 % (20.0-45.0); MEAN CORPUSCULAR VOLUME 76 FL (80-99); NEUTROPHILS % (AUTO) 52.6 % (45.0-75.0); PLATELET COUNT 363 K/UL (150-450); RED BLOOD COUNT 4.66 M/UL (4.20-5.40); RED CELL DISTRIBUTION WIDTH 14.5 % (11.6-14.8); WHITE BLOOD COUNT 4.3 K/UL (4.8-10.8)
--- NOTE | 2019-01-18 14:01 | Diagnostic Imaging Report ---
Indication: female. Pelvic pain Technique: Grayscale and duplex Doppler imaging of the pelvis performed utilizing a transabdominal scan and endovaginal scan. Comparison: None Findings: There is evidence of 5 weeks 6 day intrauterine . Yolk sac identified. pole identified. Definite heart tones are not appreciated at this time. Viability is indeterminate and not detectability may be related to the early gestational age. Recommend repeating the study in one week as well as correlation with serial quantitative beta-hCG. There is a large anechoic cysts present within the left ovary measuring approximately 4.8 cm. There is dopplerable blood flow within both ovaries. Cervical nabothian cysts noted. Right ovary measures 3.5 x 2.3 x 3.1 cm. Left ovary 4.1 x 5 5.1 x 3.5 cm. IMPRESSION: Viability indeterminate 5 week 6 day intrauterine . Recommend sonographic follow-up in one week as well as correlation with serial quantitative beta-hCG. Dominant 4.8 cm left ovarian cyst.
== END | disposition home or self-care (01) ==
LOC: EMR 12:28
DX: O20.0 Threatened abortion (principal); Z88.6 Allergy status to analgesic agent; Z88.8 Allergy status to other drugs, medicaments and biological substances
CPT/HCPCS: 36415; 76801; 80053; 81003; 83690; 84702; 85025; 85610; 85730; 86850; 86900; 86901; 96361; 96374; J2765; Z7502; 99284; J7030